=== PATIENT | male | born 1990 | race African-American/Black ===

== ENCOUNTER 2022-10-05 22:36 | Emergency (ER) | payer SELFPAY ==
[2022-10-05] MEDS ORDERED: Bupivacaine PF 0.5% 30 ML VIAL ONE (22:51)
[2022-10-05] MEDS ORDERED: Ketorolac Tromethamine 30 MG/ML VIAL ONE (23:05)
== END 2022-10-05 23:24 | disposition home or self-care (01) ==
LOC: CSHERS 22:36
DX: K02.9 Dental caries, unspecified (principal)
CPT/HCPCS: 64400; 96372; J1885; S0020